=== PATIENT | female | born 1985 | race African-American/Black ===

== ENCOUNTER 2020-06-28 06:10 | Inpatient (IN) ==
[2020-06-28] MEDS ORDERED: MEPERIDINE 50 MG/1 ML VIAL IV PRN (06:37)
[2020-06-28] MEDS ORDERED: LACTATED RINGERS 1,000 ML IV ONE (06:37)
[2020-06-28] MEDS ORDERED: ONDANSETRON 4 MG/2 ML VIAL IV PRN ×2 (06:37→09:24)
[2020-06-28 06:56] LABS: Basophils % 0.3 % (0.0-0.8); Eosinophils # 0.1 10*3/uL (0.0-0.87); Eosinophils % 0.7 % (0.00-10.9); Hematocrit 34.1 VOL% (35.7-47.0); Hemoglobin 11.1 GM/DL (12.0-16.0); Immature Granulocytes % 0.4 %; Immature Granulocytes Absolute 0.03 #; Lymphocytes # 1.5 10*3/uL (1.4-4.0); Lymphocytes % 21.6 % (21.3-54.2); Mean Corpuscular HGB Conc 32.6 GM/DL (32-36); Mean Platelet Volume 10.8 FL (9.6-12.0); Monocytes % 7.5 % (1.7-12.7); Neutrophils % 69.5 % (38.7-73.9); Platelet Count 202 T/CUMM (130-400); Red Blood Count 4.16 MC/CUMM (3.8-5.5); Red Cell Distribution Width 13.8 % (9.3-17.3); White Blood Count 6.9 T/CUMM (4-12)
[2020-06-28] MEDS ORDERED: LACTATED RINGERS 1,000 ML IV SCH (07:00)
[2020-06-28] MEDS ORDERED: ONDANSETRON 4 MG/2 ML VIAL IV ONE (07:13)
[2020-06-28] MEDS ORDERED: ePHEDrine 50 MG/ML VIAL IV PRN (07:13)
[2020-06-28] MEDS ORDERED: NALOXONE 0.4 MG/ML VIAL IV PRN (07:13)
[2020-06-28] MEDS ORDERED: PROMETHAZINE 25 MG/1 ML VIAL IM ONE (07:13)
[2020-06-28] MEDS ORDERED: diphenhydrAMINE 50 MG/1 ML VIAL IV PRN ×2 (07:13)
[2020-06-28] MEDS ORDERED: hydrOXYzine HCL 25 MG/1 ML VIAL IM PRN (07:13)
[2020-06-28] MEDS ORDERED: FAMOTIDINE 20 MG/2 ML VIAL IV ONE (07:13)
[2020-06-28] MEDS ORDERED: CITRIC ACID/SODIUM CITRATE 30 ML UDCUP PO ONE (07:13)
[2020-06-28 07:22] LABS: Albumin 2.6 G/DL (3.4-5.0); Bilirubin,Total 0.5 MG/DL (0.2-1.0); Calcium 8.9 MG/DL (8.5-10.1); Potassium 3.9 MMOL/L (3.5-5.1); Total Protein 6.9 G/DL (6.4-8.2)
[2020-06-28] MEDS ORDERED: fentaNYL 2 MCG/ROPIV 0.2% EPID 100 ML EPIDURAL SCH (07:30)
[2020-06-28] MEDS ORDERED: TRANEXAMIC ACID 1,000 MG/10 ML VIAL ONE (08:42)
[2020-06-28] MEDS ORDERED: miSOPROStoL 200 MCG TABLET ONE (08:42)
[2020-06-28] MEDS ORDERED: METHYLERGONOVINE 0.2 MG/1 ML AMP ONE (08:43)
[2020-06-28] MEDS ORDERED: OXYTOCIN/LR 20 UNIT/1,000 ML BAG IV ONE ×2 (08:43→09:24)
[2020-06-28] MEDS ORDERED: CARBOPROST TROMETHAMINE 250 MCG/ML AMP IM ONE (08:43)
[2020-06-28] MEDS ORDERED: SODIUM CHLORIDE 0.9% 0 ML IV ONE (09:03)
[2020-06-28] MEDS ORDERED: DIPH/TET/ACEL PERT BOOSTER VACCINE 0.5 ML VIAL IM ONE (09:24)
[2020-06-28] MEDS ORDERED: LANOLIN 50% CREAM 0.3 OZ TUBE TOP PRN (09:24)
[2020-06-28] MEDS ORDERED: BISACODYL 10 MG SUPP RECTAL PRN (09:24)
[2020-06-28] MEDS ORDERED: WITCH HAZEL PADS 100/JAR TOP PRN (09:24)
[2020-06-28] MEDS ORDERED: ACETAMINOPHEN 325 MG TABLET PO PRN (09:24)
[2020-06-28] MEDS ORDERED: BENZOCAINE 20%/MENTHOL 0.5% SPRAY 56 GM CAN TOP PRN (09:24)
[2020-06-28] MEDS ORDERED: MEASLES/MUMPS/RUBELLA VACCINE 0.5 ML VIAL SUBCUT ONE (09:24)
[2020-06-28] MEDS ORDERED: RHO(D) IMMUNE GLOBULIN 300 MCG SYRINGE IM ONE (09:24)
[2020-06-28] MEDS ORDERED: oxyCODONE/ACETAMINOPHEN 5-325 MG TABLET PO PRN ×2 (09:24)
[2020-06-28] MEDS ORDERED: HYDROCORTISONE 2.5% RECTAL CREAM 30 GM TUBE TOP PRN (09:24)
[2020-06-28 09:44] LABS: Cord Arterial Blood HCO3 21.2 MMOL/L
[2020-06-28 09:47] LABS: Cord Venous Blood HCO3 23.9 MMOL/L; Cord Venous Blood PCO2 45.9 MMHG; Cord Venous Blood PO2 34.4
[2020-06-28 09:53] LABS: Bacteria,Urine Occasional /HPF (Few); Bilirubin,Urine Negative (Negative); Blood, Urine Moderate mg/dL (Negative); Glucose,Urine (UA) Negative (Negative); Ketones,Urine 20 mg/dL (Negative); Mucus,Urine Many /LPF (Occasional); Nitrite,Urine Negative (Negative); Protein,Urine 100 MG/DL; RBC,Urine 148 /HPF (0-4); Urine Appearance CLEAR (Clear); Urine Color Amber (Yellow); WBC,Urine 1 /HPF (0-6)
[2020-06-28] MEDS: IBUPROFEN 800 MG TABLET PO PRN ×2 (17:26→23:26)
[2020-06-28] MEDS: DOCUSATE SODIUM 100 MG CAPSULE PO SCH (20:53)
[2020-06-29 05:34] LABS: Basophils % 0.4 % (0.0-0.8); Eosinophils # 0.1 10*3/uL (0.0-0.87); Eosinophils % 1.1 % (0.00-10.9); Hematocrit 29.8 VOL% (35.7-47.0); Hemoglobin 9.5 GM/DL (12.0-16.0); Immature Granulocytes % 0.5 %; Immature Granulocytes Absolute 0.04 #; Lymphocytes # 2.3 10*3/uL (1.4-4.0); Lymphocytes % 26.8 % (21.3-54.2); Mean Corpuscular HGB Conc 31.9 GM/DL (32-36); Mean Corpuscular Volume 82.8 FL (87-102); Neutrophils % 62.2 % (38.7-73.9); Platelet Count 169 T/CUMM (130-400); Red Cell Distribution Width 13.7 % (9.3-17.3); White Blood Count 8.5 T/CUMM (4-12)
[2020-06-29] MEDS: DOCUSATE SODIUM 100 MG CAPSULE PO SCH ×2 (08:53→20:30)
[2020-06-29] MEDS: IBUPROFEN 800 MG TABLET PO PRN ×3 (08:53→20:30)
[2020-06-30 07:22] VITALS: BP 95/49
[2020-06-30] MEDS: DOCUSATE SODIUM 100 MG CAPSULE PO SCH (08:46)
[2020-06-30] MEDS ORDERED: IRON (CARBONYL)/VIT C/B12/FA TABLET PO SCH (09:00)
== END 2020-06-30 12:15 | disposition home or self-care (01) | DRG 807 ==
LOC: N.LD 06:10 → N.OB 13:01
PROVIDERS: ADMIT Specialist; ATTEND Specialist